=== PATIENT | female | born 1985 ===

== ENCOUNTER 2018-08-27 06:00 | Inpatient (IN) ==
[2018-08-27] MEDS ORDERED: *HR* Nalbuphine 10 MG/ML AMPUL IVP PRN (06:51)
[2018-08-27] MEDS ORDERED: Naloxone 0.4 MG/ML INJ IVP PRN (06:51)
[2018-08-27] MEDS ORDERED: Famotidine 20 MG/2 ML VIAL IVP PRN (06:51)
[2018-08-27] MEDS ORDERED: miSOPROStol 25 MCG TABLET PO PRN (06:51)
[2018-08-27] MEDS ORDERED: Ondansetron 4 MG/2 ML VIAL IVP PRN (06:51)
[2018-08-27] MEDS ORDERED: Metoclopramide 10 MG/2 ML VIAL IVP PRN (06:51)
[2018-08-27] MEDS ORDERED: Ringers Solution, Lactated 1,000 ML IVC SCH (07:00)
--- NOTE | 2018-08-27 08:09 | Anesthesia Evaluation PreOp ---
Date of Encounter: 08/27/18 Time of Encounter: 08:02 - Past History Planned Operation: Del, induction Cardiac History: Denies any Significant Hx Pulmonary History: Denies Any Significant HX COLORS CUSTODIAN History: Denies Any Significant HX Other Medical History: Denies Any Significant HX Anesthesia History: No Prior Anesthetic Complications, Past Anesthesia (previous epidurals without comp, (trying this time without)) Alcohol Use: none Drug use: none Medications and Allergies Allergy/AdvReac Type Severity Reaction Status Date / Time No Known Drug Allergies AdvReac Mild none Verified 08/27/18 07:40 Anesthesia Exam - HEENT Pupil (Motor): Pupils equal Mallampati: II Teeth: Normal Oral Opening: Greater than 3 - COLORS CUSTODIAN LOC: Oriented COLORS CUSTODIAN Motor: Normal RUE, Normal LUE, Normal RLE, Normal LLE, Normal Face COLORS CUSTODIAN Sensory: Normal: RUE, LUE, RLE, LLE, Face - Cardiac Rhythm: Regular Murmur: None - Pulmonary Breath Sounds: bilateral Clear Respiratory Effort: Symmetrical Anesthesia Assess/Plan ASA Score: 2 Level of consciousness: Cooperative, Oriented Anesthetic Plan: General, Spinal, Epidural Monitoring Plan: Standard Monitors Recovery Plan: PACU
[2018-08-27] MEDS ORDERED: Epidural Premix (fent/bupiv) 110 ML EP SCH (08:15)
[2018-08-27] MEDS ORDERED: Lidocaine -MPF 1% 2 ML VIAL ONE (08:35)
--- NOTE | 2018-08-27 08:40 | OB/GYN History & Physical ---
Date of Encounter: 08/27/18 Time of Encounter: 08:28 Assessment and Plan (1) 39 weeks gestation of Current visit: Yes Status: Acute care with Dr. Batista (2) Encounter for induction of labor Current visit: Yes Status: Acute Oral Cytotec and Arboleda balloon. Anticipate vaginal delivery (3) H/O: depression Current visit: Yes Status: Acute The patient has a history of depression. She is not sure that she wants medications prior to discharge but will let us know History of Present Illness Chief complaint: IOL at 39 weeks HPI: Ms. Chiang is a 33 year old female EDC 09/02/28 by 11 week ultrasound who presents to labor and delivery for induction of labor. She has had care with Dr. Batista. She has had 3 term vaginal deliveries without complication. Her pelvis is proven to 7 lbs. 6 oz. This has been complicated with some social issues. She started on fluoxetine in second trimester and discontinued it by 34 weeks. She has had 25 pound weight gain. Father of the baby is involved. testing has been reassuring. Labwork: Blood type is O+, she is hepatitis B surface antigen negative, rubella immune, varicella nonimmune, GBS negative. She has signed induction consent, questions have been answered. Past Med Surg Social Fam HX - Past Medical History Source: patient, old records reviewed Medical history: other Additional medical history: HPV Psychiatric history: depression - Past Surgical History Surgical History: no surgical history - Social History Smoking Status: Never smoker Alcohol use: none Drug use: none Current living situation: Home - Independent Activity Level: Independent ambulation Recent Out of Country Travel Within the Last 8 Weeks: No Exposure or Possible Exposure to Illness During Travel: No - Family History Mother Family Member Ethnicity: Non- Living Status: Hx Family Medical Disorders: Yes (Blood clots) Obstetrical History - Pregnancies : 5 Term: 3 Ab's: 1 Livin Medications and Allergies Allergy/AdvReac Type Severity Reaction Status Date / Time No Known Drug Allergies AdvReac Mild none Verified 08/27/18 07:40 Review of System OB All systems PM: reviewed and no additional remarkable complaints except as stated - Constitutional Constitutional ROS IM: weight gain, no headache(s) - Cardiovascular Cardiovascular: no chest pain, no dyspnea, no leg edema - Respiratory Respiratory: no dyspnea - Gastrointestinal Gastrointestinal: cramping - Genitourinary Genitourinary: no dysuria, no genital lesions, no urinary frequency - Menstruation Menstruation: as per HPI - Muscloskeletal Musculoskeletal: tingling (Right foot) Exam - Vital Signs Vital signs: Afebrile, vital signs stable. heart tones 120s baseline, CAT 1. Contractions every 2-4 minutes after one oral dose of Cytotec. - Constitutional Constitutional: well developed, well nourished, no acute distress - HEENT HEENT: Normocephaly, Mucus Membranes Moist - Neck Neck exam: normal inspection, supple, trachea midline - Lungs Respiratory exam: CTAB - Cardiovascular Cardiovascular exam: RRR - Breasts Breast: bilateral: normal (Gravid) - Abdomen Abdomen: Present: bowel sounds normal, gravid, non tender - Extremities Extremities exam: normal inspection, warm Deep Tendon Reflex Grade: 2+ Normal - Vulva Vulva: bilateral: normal - Vagina Vagina: Present: normal moisture - Cervix Dilation: 2 Effacement: 70 Station: -2 (Vertex) - Anus/Rectum Anus/Rectum: Present: normal perianal skin - Comments Comments: Patient given the option of a Arboleda to help with cervical dilatation. A Arboleda was then placed without difficulty using a guidewire. It was inflated with 55 mL of sterile fluid without difficulty. Results All other labs normal. - VTE Reasons for not Prescribing Prophylaxis: Treatment not Indicated - Low risk for VTE
[2018-08-27 09:00] LABS: Basophils # 0.1 K/mcL (0.0-0.2); Basophils % 0.8 %; Eosinophils # 0.1 K/mcL (0.0-0.6); Hematocrit 33.4 % (35.3-44.9); Hemoglobin 10.8 g/dL (11.5-15.4); Lymphocytes # 1.8 K/mcL (0.6-4.6); Lymphocytes % 29.3 %; Mean Corpuscular HGB Conc 32.3 g/dL (31.6-35.5); Mean Corpuscular Hemoglobin 27.2 pg (28.0-33.3); Mean Corpuscular Volume 84.1 fL (83.0-100.0); Mean Platelet Volume 12.6 fL (9.4-12.4); Monocytes # 0.7 K/mcL (0.0-1.3); Monocytes % 10.5 %; Neutrophils # 3.6 K/mcL (1.6-8.9); Platelet Count 161 K/mcL (140-400); Red Blood Count 3.97 M/mcL (3.82-4.97); Red Cell Distribution Width 12.2 % (11.5-14.5); Segmented Neutrophils % 57.4 %; White Blood Count 6.2 K/mcL (4.3-11.1)
[2018-08-27 09:07] LABS: Amphetamine Screen,Urine Negative ng/mL (Cutoff=1000); Barbiturate Screen,Urine Negative ng/mL (Cutoff=200)
[2018-08-27 09:08] LABS: Benzodiazepines Screen,Urine Negative ng/mL (Cutoff=300); Cannabinoid Screen,Urine Negative ng/mL (Cutoff = 50); Cocaine Screen,Urine Negative ng/mL (Cutoff= 300); Opiate Screen,Urine Negative ng/mL (Cutoff=300); Phencyclidine Screen,Urine Negative ng/mL (Cutoff=25)
--- NOTE | 2018-08-27 12:37 | OB Labor Progress Note ---
Date of Encounter: 08/27/18 Time of Encounter: 12:35 Labor Progress Note - Subjective Subjective: The patient reports feeling her contractions and some of them are fairly uncomfortable that she is doing well with breathing techniques. She had one dose of Nubain and did not like how it made her feel. The Arboleda balloon came out about an hour ago. - Vital Signs Vital Signs: Afebrile, vital signs stable - Cervix Cervix: 5/70/-2, vertex well applied, cervix soft and mid position - Heart Tones Heart Tones: 110s to 120s, CAT 1 - [place]: Contractions every 2-3 minutes on external monitor - Interventions Interventions: 39 week IUP for induction of labor with anemia. - Plan Plan: Amniotomy performed, small amount of clear fluid seen. Patient tolerated well. Continue to monitor for vaginal delivery. Pain management as per request
[2018-08-27] MEDS ORDERED: Oxytocin 20 units/ LR 1000 mL 20 UNIT/1,000 ML BAG IVC ONE (14:43)
[2018-08-27] MEDS ORDERED: Oxytocin 20 units/ LR 1000 mL 20 UNIT/1,000 ML BAG IVC SCH ×2 (14:45→23:05)
[2018-08-27] MEDS ORDERED: Bupivacaine-MPF 0.25% 10 ML VIAL ONE (16:26)
--- NOTE | 2018-08-27 17:09 | Anesthesia Procedures ---
Date of Encounter: 08/27/18 Time of Encounter: 16:39 Procedures: Anesthesia - Epidural/Spinal Patient ID/Chart reviewed: Yes Patient examined: Yes OB Eval: Contractions: Non-stressed pattern Consent Obtained: Yes Supplemental Oxygen: None/Room Air Site Prep: Aseptic Technique, Sterile prep and drape, 0.5% Chlorhexidine/Alcohol Patient position: upright Local Anesthetic: Lidocaine 1% Amount of Local Anesthetic used: 2 Touhy Needle Gauge: 18 Touhy Needle Depth (cm): 6 Catheter Depth at Skin (cm): 10 Test Dose (1.5% Lido + Epi): Volume given (mls): 4 Test Dose Result: Negative Loading Dose: Other: 8ml from solution Loading Dose Administered: Thru Catheter Infusion Med: 0.125% Bupivacaine w/ 2 mcg/ml Fentanyl Infusion Rate (mls/hr): [address]: Tegaderm, Tape Interspace Used: L3-L4 Loss of Resistance (MICKEY): Yes (saline) Blood: No CSF: Yes (25g with 0.75ml 0.25% bup plain ) Paresthesia: No Procedure: vss though out procedure, fhr va rn's
--- NOTE | 2018-08-27 19:53 | OB Labor Progress Note ---
Date of Encounter: 08/27/18 Time of Encounter: 18:10 Labor Progress Note - Subjective Subjective: Patient comfortable and happy with her epidural - Vital Signs Vital Signs: Afebrile, vital signs stable - Cervix Cervix: 8/80/0 station, vertex - Heart Tones Heart Tones: 120s baseline, CAT 1 - [place]: Contractions every 3-6 minutes on Pitocin - Interventions Interventions: 39 week IUP for induction of labor, status post epidural - Plan Plan: IUPC placed without difficulty for further management of labor contractions and induction.
[2018-08-27] MEDS ORDERED: 0.9 % Sodium Chloride 1,000 ML ONE (21:26)
--- NOTE | 2018-08-27 21:35 | OB Labor Progress Note ---
Date of Encounter: 08/27/18 Time of Encounter: 21:33 Labor Progress Note - Subjective Subjective: The patient reports a lot of pressure with contractions and feels gushes of fluid at that time. She declines any intervention as far as pain management at this time - Vital Signs Vital Signs: Afebrile, vital signs stable - Cervix Cervix: 8/90/0+1, vertex - Heart Tones Heart Tones: 130s, early decelerations and a recurring pattern that improved with maternal positioning - [place]: Contractions every 2-3 minutes 50-70 mmHg on 14 milliunits of Pitocin - Interventions Interventions: 39 week IUP for induction of labor with epidural - Plan Plan: Amnioinfusion, anticipate vaginal delivery. Maternal support as desired
--- NOTE | 2018-08-27 22:53 | OB/GYN Procedure Note ---
Delivery - Delivery Date: 08/27/18 Provider: Shanta Beltran Intrapartum events: none Delivery induction: matthews, misoprostol Delivery augmentation: rupture of membranes, pitocin Delivery monitor: external FHT, external uterine, internal uterine Anesthesia: intravenous, epidural Quantitated Blood Loss: 100 - Infant (s) A Infant Delivery Date: 08/27/18 Infant Delivery Time: 22:32 Presentation: vertex Position: GABRIELE Route of delivery: Gender: Female Viability: Viable Pounds: 8 Ounces: 4 Weight Gram: 3.73 kg at 1 minute: 7 at 5 mins: 8 Shoulder Dystocia: not encountered Specimens collected: cord blood Placenta: spontaneous Cord: 3 umbilical vessels - Repair Episiotomy: none Laceration Description: Periurethral (Bilateral, Superficial without repair) - Complications Delivery complications: none Delivery comments: The patient was complete and pushing with epidural anesthesia with a spontaneous vaginal delivery in the GABRIELE position of a vigorous female infant weighing 8 lbs. 4 oz. with Apgars of 7 at 1 minute and 8 at 5 minutes. was placed on the maternal abdomen and handed to the nursery care team. The cord was clamped and cut after pulsations ceased. Cord blood obtained. The placenta was delivered spontaneous and intact. Three-vessel cord confirmed. Perineum was intact. There were bilateral periurethral lacerations which were hemostatic and not repaired. Estimated blood loss 100 mL, complications none. Both mother and were recovering in stable condition in the LDR - Disposition Mom disposition: stable in LDR disposition: stable in LDR
[2018-08-27] MEDS ORDERED: Rho Immune Globulin 1,500 UNIT SYRINGE IM PRN (23:05)
[2018-08-27] MEDS: Ibuprofen 600 MG TABLET PO SCH (23:17)
[2018-08-28] MEDS ORDERED: Acetaminophen 325 MG TABLET PO SCH
[2018-08-28] MEDS: Ibuprofen 600 MG TABLET PO SCH ×2 (07:34→17:35)
[2018-08-28 08:04] LABS: Hematocrit 32.3 % (35.3-44.9); Hemoglobin 10.6 g/dL (11.5-15.4); Mean Corpuscular HGB Conc 32.8 g/dL (31.6-35.5); Mean Corpuscular Hemoglobin 27.8 pg (28.0-33.3); Mean Corpuscular Volume 84.8 fL (83.0-100.0); Mean Platelet Volume 11.6 fL (9.4-12.4); Platelet Count 143 K/mcL (140-400); Red Blood Count 3.81 M/mcL (3.82-4.97); Red Cell Distribution Width 12.4 % (11.5-14.5)
[2018-08-28 08:13] LABS: White Blood Count 12.5 K/mcL (4.3-11.1)
--- NOTE | 2018-08-28 08:15 | OB/GYN Progress Note ---
Date of Encounter: 08/28/18 Time of Encounter: 08:12 - Assessment and Plan (1) Status post vaginal delivery Current Visit: Yes Status: Acute (2) Family planning advice Current Visit: Yes Status: Acute Patient will be kept nothing by mouth for bilateral partial salpingectomy today Subjective - Subjective Interval history: Patient is doing well this morning having some cramping and discomfort but tolerable. Patient was questioning whether she wanted her tubal ligation today for weight. Did go over the risks and benefits of doing it now versus waiting patient states she would like to try and do it today. If cannot be done earlier in the day she will cancel and reschedule for a later date. Patient states bleeding has significantly slowed down. She has been nothing by mouth since midnight. Baby is doing well. Patient reports: appetite normal, voiding normally, pain well controlled, ambulating normally : doing well Objective - Latest Vital Signs Latest vital signs: Vital Signs Temp Pulse Resp BP Pulse Ox 08/28/18 07:47 16 08/28/18 03:35 97.6 F 75 16 100 08/28/18 02:30 97.6 F 73 15 118/86 98 08/28/18 01:30 98 F 85 14 107/67 97 Intake and Output 08/27/18 08/28/18 08/28/18 23:59 07:59 15:59 Output Total 300 / 300 400 / 400 Balance -300 / -300 -400 / -400 Output: Urine 400 / 400 Estimated Blood Loss 100 / 100 Catheter 200 / 200 Other: Weight 80.7 kg Patient Weight 08/28/18 23:59 Weight 80.7 kg - Exam Lungs: bilateral: normal Chest: Normal S1, Normal S2 Extremities: Present: normal Abdomen: Present: normal appearance, soft Uterus: Present: normal, firm Uterus Position: At Umbilicus - Labs Labs: Laboratory Results - last 24 hr 08/27/18 08/27/18 06:45 06:45 WBC 6.2 RBC 3.97 Hgb 10.8 L Hct 33.4 L MCV 84.1 MCH 27.2 L MCHC 32.3 RDW 12.2 Plt Count 161 MPV 12.6 H Immature Gran % 1.0 Seg Neutrophils % 57.4 Lymphocytes % 29.3 Monocytes % 10.5 Eosinophils % 1.0 Basophils % 0.8 Neutrophils # 3.6 Lymphocytes # 1.8 Monocytes # 0.7 Eosinophils # 0.1 Basophils # 0.1 Urine Opiates Screen Negative Ur Barbiturates Screen Negative Ur Phencyclidine Scrn Negative Ur Amphetamines Screen Negative U Benzodiazepines Scrn Negative Urine Cocaine Screen Negative U Marijuana (THC) Screen Negative Ur Drug Screen Interp See Below
[2018-08-28] MEDS ORDERED: Prenatal Vit/FA 1 EACH TABLET PO SCH (09:00)
[2018-08-28] MEDS ORDERED: Ringers Solution, Lactated 1,000 ML ONE (10:57)
[2018-08-28] MEDS ORDERED: Lidocaine -MPF 2% 5 ML VIAL ONE (12:09)
[2018-08-28] MEDS ORDERED: *HR* Succinylcholine 200 MG/10 ML VIAL IVP ONE (12:09)
[2018-08-28] MEDS ORDERED: *HR* FentaNYL (PF) 100 MCG/2 ML VIAL ONE (12:09)
[2018-08-28] MEDS ORDERED: *HR* Midazolam HCl 2 MG/2 ML VIAL ONE (12:09)
[2018-08-28] MEDS ORDERED: Ondansetron 4 MG/2 ML VIAL ONE (12:09)
[2018-08-28] MEDS ORDERED: Dexamethasone 4 MG/ML VIAL ONE (12:09)
[2018-08-28] MEDS ORDERED: *HR* Rocuronium Bromide 50 MG/5 ML VIAL ONE (12:09)
[2018-08-28] MEDS ORDERED: *HR* Propofol 200 MG/20 ML VIAL IVP ONE (12:09)
--- NOTE | 2018-08-28 12:26 | Operative Note ---
Date of procedure: 08/28/18 Pre-op diagnosis: Status post vaginal delivery, desires permanent form of sterilization Post-op diagnosis: same Procedure: Bilateral salpingectomy Complications: none Anesthesia: GETA Surgeon: Suraj Jovel Was there an showroom sales assistant present: No Estimated blood loss (cc): 20 Specimen: Portions of the right and left fallopian tube Condition: stable Disposition: other (Labor and delivery recovery room) Procedure in Detail: Patient is a 33-year-old status post vaginal delivery who desired permanent form of sterilization. Patient is wanting a tubal ligation did explain the risks and benefits of the tubal ligation with failure rate of 5-8 per thousand with increased risk of ectopic if was to occur. Patient still wanted to proceed on with the procedure. Procedure: Patient was taken to the operating room with general anesthesia was found be adequate. She presently dorsal spine position prepped and draped in usual fashion. Timeout was obtained. A small infraumbilical incision was made with a scalpel and carried down to the underlying tissue to the fascia was identified. Fascia was nicked in midline and extended laterally with the Montano scissors. Parietal peritoneum was then identified tented up and entered sharply. Army-Elephant Head retractors placed through the incision, the fallopian tubes were then grasped followed out to the fimbriated end then using a 0 chromic the knuckle of the fallopian tube was inserted she ligated including the fimbria 2 and the knuckle was excised off. This was repeated in the opposite side in a similar fashion. On the patient's left side the mesosalpinx did separate there was some bleeding for Vicryl was used to get hemostasis under control. We did observe for period of time no active bleeding was noted and tubes were returned to the abdomen. The fascia was then closed using 0 Vicryl in a running stitch and the skin was closed using a 4-0 Vicryl in subcuticular manner. All needles lap sponge counts were correct 3 she did tolerate the procedure well. Patient was taken to the recovery room in stable condition.
[2018-08-28] MEDS ORDERED: *HR* OxyCODONE Immed Rel 5 MG TABLET PO PRN (12:38)
[2018-08-28] MEDS ORDERED: *HR* Promethazine 25 MG/ML VIAL IVP PRN (12:38)
--- NOTE | 2018-08-28 13:32 | Anesthesia Evaluation Post Op ---
Date of Encounter: 08/28/18 Time of Encounter: 13:30 - Lungs Lungs: Clear Ascult./Percussion - Airway Airway: Non-obstructed - Cardiovascular Regular Rate, Baseline Rhythm - Mental Status Mental Status: Alert & Oriented, Answers Appropriately - Pain Pain Scale: 0 Pain Scale used: Numeric (1 - 10) - Nausea Vomiting Nausea Vomiting: Not Present - Hydration Hydration: NPO - Discharge PostOp Status: Transfer Patient to floor
[2018-08-28] MEDS ORDERED: *HR* OxyCODONE Immed Rel 5 MG TABLET PO ONE ×2 (13:45→13:49)
[2018-08-28] MEDS: *HR* HYDROcodone/Acet 5/325 mg TABLET PO PRN ×2 (15:36→20:06)
[2018-08-28] MEDS: Acetaminophen 325 MG TABLET PO SCH (20:07)
[2018-08-28] MEDS ORDERED: Lanolin 7 G OINT...G. TP PRN (21:20)
[2018-08-28] MEDS: *HR* HYDROcodone/Acet 10/325 mg TABLET PO PRN (22:12)
[2018-08-29] MEDS: Ibuprofen 600 MG TABLET PO SCH ×2 (01:52→08:17)
[2018-08-29] MEDS: Acetaminophen 325 MG TABLET PO SCH (01:52)
[2018-08-29] MEDS: *HR* HYDROcodone/Acet 10/325 mg TABLET PO PRN (08:19)
[2018-08-29] MEDS ORDERED: Prenatal Vit/FA 1 EACH TABLET PO SCH (09:00)
[2018-08-29] MEDS ORDERED: Simethicone 80 MG TAB.CHEW PO PRN (09:41)
[2018-08-29] MEDS ORDERED: MOM Conc 10 ML UD.LIQ PO ONE (09:43)
[2018-08-29 09:49] VITALS: BP 124/66
--- NOTE | 2018-08-29 10:08 | Discharge Summary ---
Date of Encounter: 08/29/18 Time of Encounter: 10:08 - Discharge Diagnosis (1) Status post vaginal delivery Priority: Primary Status: Acute Comments: S/P Vaginal delivery day 2 Pain is moderately controlled Lochia is light and without clots VSS Tolerating regular diet; denies nausea, not passing flatus Voiding without difficulty Discharge home today POC per consult with Dr Choe (2) Encounter for tubal ligation Priority: Secondary Status: Acute Comments: Doing well post tubal. States pain is tolerable, but uncomfortable C/O gas pressure in abdomen and bilateral cramping in lower abdomen/flanks - Discharge Medications Prescriptions: New Breast Pump [BREAST PUMP] 1 each .ROUTE AD #1 each Docusate [Colace] 100 mg PO BID #30 capsule Ferrous Sulfate 325 mg PO DAILY #90 tablet Simethicone [Gas-X] 80 mg PO TID PRN #30 tab.chew PRN Reason: Dyspepsia Lanolin [Lansinoh] 1 appl TP TID PRN oint...g. PRN Reason: Sore Nipples Ibuprofen [Motrin] 600 mg PO Q6HR #30 tablet HYDROcodone/Acet 5/325 mg [Buford 5-325 mg] 1 tab PO Q6H PRN 5 Days #20 tablet PRN Reason: Mild To Moderate Pain Acetaminophen [Tylenol] 650 mg PO Q6HR tablet Home Medications: Acetaminophen [Tylenol] 650 mg PO Q6HR tablet 08/29/18 [Rx] Breast Pump [BREAST PUMP] 1 each .ROUTE AD #1 each 08/29/18 [Rx] Docusate [Colace] 100 mg PO BID #30 capsule 08/29/18 [Rx] Ferrous Sulfate 325 mg PO DAILY #90 tablet 08/29/18 [Rx] HYDROcodone/Acet 5/325 mg [Buford 5-325 mg] 1 tab PO Q6H PRN 5 Days #20 tablet 08/29/18 [Rx] Ibuprofen [Motrin] 600 mg PO Q6HR #30 tablet 08/29/18 [Rx] Lanolin [Lansinoh] 1 appl TP TID PRN oint...g. 08/29/18 [Rx] Simethicone [Gas-X] 80 mg PO TID PRN #30 tab.chew 08/29/18 [Rx] Allergies/Adverse Reactions: Allergy/AdvReac Type Severity Reaction Status Date / Time No Known Drug Allergies AdvReac Mild none Verified 08/27/18 07:40 Data Procedures and tests throughout hospitalization: Laboratory Tests 08/27/18 08/27/18 08/28/18 06:45 06:45 07:49 WBC 6.2 12.5 H D RBC 3.97 3.81 L Hgb 10.8 L 10.6 L Hct 33.4 L 32.3 L MCV 84.1 84.8 MCH 27.2 L 27.8 L MCHC 32.3 32.8 RDW 12.2 12.4 Plt Count 161 143 MPV 12.6 H 11.6 Immature Gran % 1.0 Seg Neutrophils % 57.4 Lymphocytes % 29.3 Monocytes % 10.5 Eosinophils % 1.0 Basophils % 0.8 Neutrophils # 3.6 Lymphocytes # 1.8 Monocytes # 0.7 Eosinophils # 0.1 Basophils # 0.1 Urine Opiates Screen Negative Ur Barbiturates Screen Negative Ur Phencyclidine Scrn Negative Ur Amphetamines Screen Negative U Benzodiazepines Scrn Negative Urine Cocaine Screen Negative U Marijuana (THC) Screen Negative Ur Drug Screen Interp See Below Date of admission: 08/27/18 06:16 Primary care physician: Bailee Vu CNP Consults: 08/27/18 23:05 Consult to Farm Equipment Maintenance Supervisor [CONS] Routine Comment: Vaginal delivery, consult needed Discharging clinician: Feli Hollins Anticipated date of discharge: 08/29/18 - Patient Status Disposition: Home, Self-Care Condition: Good Functional capacity at discharge: independent ambulation Overall status at discharge: patient is progressing back to baseline - Discharge Instructions Follow Up With: Bailee Vu CNP [Primary Care Provider] - Shanta Beltran MD [Partnered Physician] - - Diet and Activity Activity: increase activity as tolerated Diet: regular diet Hospital Course Reason for admission: active labor, IUP at term Delivery: Episiotomy: none Laceration: other Other procedures: tubal ligation complications: none Discharge diagnosis: IUP at term delivered [place] baby: female Time Attestation: Total time spent providing and/or coordinating discharge services: Time Spent: Less than 30 minutes Exam - Constitutional Vitals: Temp Pulse Resp BP Pulse Ox 97.9 F 87 16 124/66 98 08/29/18 09:00 08/29/18 09:00 08/29/18 09:00 08/29/18 09:00 08/29/18 09:00 General appearance IM: cooperative, A&O X 3, pleasant - Respiratory Respiratory exam: Present: CTAB - Cardiovascular Cardiovascular exam IM: Present: RRR, +S1, +S2 - GI/Abdominal GI/Abdominal exam IM: diminished bowel sounds, firm (not rigid, but firm in central abdomen. ), soft (soft along anterior portion and bilateral sides) Incision: normal, dry, intact - Rectal Rectal exam: deferred - Uterine Tone: Firm Uterus Position: At Umbilicus, Midline - Extremities Exam Extremities exam IM: Present: normal capillary refill, normal inspection, radial pulses palpable and symmetrical - Neurological Exam Neurological exam: alert, oriented X3
== END 2018-08-29 13:39 | disposition home or self-care (01) | DRG 798 ==
LOC: 1NENULAB 06:16 → 1NENUOBS 08-28 00:34
PROVIDERS: ADMIT Obstetrics & Gynecology; ATTEND Obstetrics & Gynecology